=== PATIENT | male | born 1960 | race Caucasian/White ===

== ENCOUNTER 2019-04-24 17:13 | Inpatient (IN) | payer BC ==
[~2019-04-24 17:13] MED LIST: ISOVUE-370 76%-LOCM 1 ML ONE
[2019-04-24 17:41] LABS: Hemoglobin 13.9 g/dL (14.0-18.0); Mean Corpuscular HGB CONC 32.7 g/dL (32.0-36.0); Mean Corpuscular Volume 70.3 fL (78.0-98.0); Mean Platelet Volume 8.7 fL (7.4-10.4); Platelet Count 243 thou/uL (130-400); Red Blood Cell (RBC) Count 6.04 mill/uL (4.70-6.10); White Blood Cell (WBC) Count 8.6 thou/uL (4.8-10.8)
[2019-04-24 17:47] LABS: PTT 29.1 SEC (22.9-36.1)
[2019-04-24 17:58] LABS: #Eosinphils 0.1 thou/uL (0.0-0.7); #Lymphocytes 2.2 thou/uL (1.20-3.40); #Monocytes 0.7 thou/uL (0.11-0.59); #Neutrophils 5.6 thou/uL (1.40-6.50); %Basophils 0.4 % (0.0-1.0); %Eosinophils 0.6 % (0.0-10.0); %Lymphocytes 25.1 % (21.0-51.0); %Monocytes 8.3 % (0.0-10.0); %Neutrophils 65.6 % (42.0-75.0); Hypochromia SLIGHT = 6-15 cells (100X) (0-5/hpf); MDiff Complete? YES; Microcytosis SLIGHT = 6-15 cells (100X) (0-5/hpf); Platelet Morphology Comment Appears Adequate
--- NOTE | 2019-04-24 18:00 | CT ---
CT BRAIN WITHOUT CONTRAST: 04/24/19 HISTORY: 59-year-old male with increasing significant loss of range of motion to the left arm. Headache. FINDINGS: There is white matter edema in the right cerebral hemisphere with a tiny calcification suggesting mas s. No significant midline shift is seen. No evidence of hemorrhage or abnormal extra-axial fluid ayse ections are noted. The ventricular size appears appropriate. The bony calvarium is intact. The visual ized paranasal sinuses and mastoid air cells are well aerated. IMPRESSION: Findings are suspicious for right sided intra-axial mass/malignancy. This should be evaluated with a contrast enhanced MRI. Discussed over the telephone with ER physician Dr. Bandar Henry at 5:48 p.m. Code CR POS: [facility]
[2019-04-24 18:02] LABS: ALT (SGPT) 22 U/L (8-55); AST (SGOT) 15 U/L (5-34); Albumin 4.5 g/dL (3.5-5.0); Alkaline Phosphatase 89 U/L (40-110); Anion Gap 11 mmol/L (10-20); BUN (Urea Nitrogen) 10 mg/dL (8.4-25.7); Bilirubin, Total 0.4 mg/dL (0.2-1.2); Calc. Creatinine Clearance 0 mL/min (70-130); Calcium 9.4 mg/dL (7.8-10.44); Carbon Dioxide 28 mmol/L (22-29); Chloride 101 mmol/L (98-107); Estimated GFR-MDRD Greater than 90; Globulin 3.1 g/dL (2.4-3.5); Glucose 194 mg/dL (70-105); Potassium 4.1 mmol/L (3.5-5.1); Protein, Total 7.6 g/dL (6.0-8.3); Sodium 136 mmol/L (136-145)
[2019-04-24] MEDS ORDERED: Dexamethasone 10 MG/ML VIAL ONE (18:39)
[2019-04-24] MEDS ORDERED: Senokot S 8.6-50 MG TAB PO PRN (20:02)
[2019-04-24] MEDS ORDERED: Bisacodyl 10 MG SUPP PR PRN (20:02)
[2019-04-24] MEDS ORDERED: Dextrose 5% in Water 1,000 ML IV PRN (20:02)
[2019-04-24] MEDS ORDERED: Acetaminophen 325 MG TAB PO PRN (20:02)
[2019-04-24] MEDS ORDERED: Dextrose 50% Abboject 50 ML SYRINGE SLOW IVP PRN (20:02)
[2019-04-24] MEDS ORDERED: Ondansetron PF 4 MG/2 ML Vial IVP PRN (20:02)
[2019-04-24] MEDS ORDERED: Guaifenesin DM 100-10/5 ML UDCUP PO PRN (20:02)
[2019-04-24 20:19] VITALS: BMI 23.8
[2019-04-24] MEDS ORDERED: FLU VACC QS2019-20(6MOS UP)/PF 60 MCG/0.5 ML SYRINGE IM ONE (21:00)
--- NOTE | 2019-04-24 21:19 | HP ---
REASON FOR ADMISSION: Right brain mass with left upper extremity weakness. HISTORY OF PRESENTING ILLNESS: The patient gives history of having 2 weeks of trouble with movement of his hand and wrist. He could not make a fist and he could not type on the keyboard. He has also had trouble when he was trying to mow his lawn. He went to see his primary care physician, Dr. Jeniffer Campbell. He was referred to see Dr. Funes, who saw Dr. Funes on Saturday and was advised steroids for 2 weeks and an MRI to be obtained. The MRI date is on May 06. He has history of left lower extremity polio when he was 3 years old. He normally can take support of his entire feet when he ambulates, but for now he is using his heel and also he cannot really support his leg with his left upper extremity with more shaking. In general, the patient has been weaker on the left upper than lower extremity from last 2 weeks, which has been progressively getting worse. He has also had tingling sensation in his left upper extremity. As his symptoms were progressively getting worse and his MRIs on May 06, the patient got worried, hence came to emergency room. PAST MEDICAL AND SURGICAL HISTORY: 1. History of polio when he was 3 years old, affecting left lower extremity. 2. Hypertension. 3. Diabetes mellitus, type 2. 4. History of colonoscopy done with polyps removed. 5. Occasional gout flare-up. 6. No other surgical history. CURRENT MEDICATIONS: 1. Metformin 1000 mg twice daily. 2. Glimepiride 4 mg twice daily. 3. Lisinopril 5 mg p.o. daily. 4. Aspirin 81 mg daily. PERSONAL HISTORY: Does not abuse alcohol or drugs. No history of smoking. 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 FAMILY HISTORY: Father is healthy. Mother at the age of 78 years, she had history of diabetes and hypertension. He has one brother and three sisters, none of whom have cancers, has a sister who has diabetes. CODE STATUS: Full. POWER OF [employer] EXCHANGE ARCHITECT: His . REVIEW OF SYSTEMS: PHYSICAL EXAMINATION: GENERAL: The patient is a 59-year-old male, who is currently not in any acute distress. VITAL SIGNS: Blood pressure 146/84, pulse 80 per minute, respiratory rate 18 per minute, temperature 97.3 degrees Fahrenheit, saturating 99% on room air. NECK: Supple. No elevated JVD. HEENT: Eyes, extraocular muscles are intact. Pupils are reacting to light. Oral cavity, mucous membranes are moist. No exudates or congestion. CARDIOVASCULAR: S1, S2 heard. Regular rhythm. RESPIRATORY: Air entry 2+ bilateral. No rales or rhonchi. ABDOMEN: Soft. Bowel sounds heard. No tenderness, rigidity, or guarding. EXTREMITIES: No peripheral edema or calf tenderness. Left lower extremity, the patient has chronic polio changes with wasting of musculature. VASCULAR: Peripheral pulses are 1+ bilateral. No ischemic ulcerations or gangrene. CENTRAL NERVOUS SYSTEM: The patient has a strength of 3/5 in left upper extremity. Left lower extremity, the patient is chronically weak due to history of polio from 3 years of age, but he feels that it is lot more weaker than before, but not as bad as his upper extremity. Right upper and lower extremity strength is 5/5. The patient is right-handed. He has trouble supinating his left upper extremity. He has also had trouble making a fist touching his fingers to the thumb on the left hand. PSYCHIATRIC: The patient's mood is euthymic. No hallucinations or delusions. LABORATORY DATA: CT brain done shows intra-axial right brain mass with edema. Electrolytes are stable. BUN 10, creatinine 0.8, serum glucose 194. Liver enzymes are within normal limits. Cardiac enzymes are negative. Albumin is 4.5. PT, INR, and PTT within normal limits. White count of 8, H and H 13 and 42, platelet count is 243, MCV 70 with 65% neutrophils. CLINICAL IMPRESSION AND PLAN: The patient will be admitted to ICU for right brain mass with edema and left-sided weakness. He will be on Decadron 4 mg IV q.6 hourly. has spoken to Dr. Harvey. He will have an MRI brain with and without contrast and we will also obtain a CT chest, abdomen, and pelvis to see if there is a primary with possible mass in the brain. Echo for LV function. He will be on Lantus 10 units subcu twice daily Protonix 40 mg IV daily. All his oral medications including metformin, glimepiride, lisinopril, aspirin will be held for now. I have given complete updates to patient, his and daughter who are here at bedside. He will be closely monitored for possible seizures, fall, and aspiration precautions. Further workup will decide further course of action. Job ID: [id number]
[2019-04-24] MEDS: Insulin Glargine 10 UNITS in Pre-Filled Syringe SC SCH (22:02)
[2019-04-24] MEDS: Dexamethasone 4 mg/ml Vial SLOW IVP SCH (23:39)
[2019-04-24] MEDS ORDERED: Dexamethasone 4 mg/ml Vial SLOW IVP SCH (23:59)
--- NOTE | 2019-04-25 01:34 | CON ---
DATE OF CONSULTATION: 04/24/2019 HISTORY OF PRESENT ILLNESS: The patient is a 59-year-old male with a past medical history of hypertension, diabetes, history of polio as a child with chronic left lower extremity weakness, who presented to the emergency department for progressive left-sided weakness and facial changes x2 weeks. He reports that this began gradually 2 weeks ago without inciting event. He describes it as a numbness in the left hand. 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 He is not having difficulty ambulating and supporting his weight. He recently followed up with Neurology, but MRI was scheduled for 05/06, and his symptoms were progressing rather quickly; therefore, he came to the emergency department tonight for evaluation. Noncontrast CT head was notable for what appears to be an underlying right-sided cerebral mass with surrounding vasogenic edema. There is no significant midline shift. PAST MEDICAL HISTORY: History of polio when he was 3 years old, affecting left lower extremity; hypertension, diabetes. PAST SURGICAL HISTORY: Colonoscopy. 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 Does not smoke, drink, or use any drugs. FAMILY HISTORY: Noncontributory. ALLERGIES: NO KNOWN DRUG ALLERGIES. REVIEW OF SYSTEMS: Per HPI. PHYSICAL EXAMINATION: VITAL SIGNS: Heart rate is 105, BP 165/103, respiration rate is 21. He is 99% on room air. Afebrile. CONSTITUTIONAL: Awake, alert, no acute distress. HEENT: Head is normocephalic and atraumatic. He is noted to have slight left-sided facial droop. Eyes, PERRLA. Extraocular movements intact. ENT, oral mucosa is pink, intact, moist. NECK: Nontender to palpation. No meningismus or nuchal rigidity. CARDIAC: Regular rate and rhythm. PULMONARY: Symmetric chest expansion. No evidence of dyspnea. MUSCULOSKELETAL: He has chronic changes consistent with post-polio in the left lower extremity with contracture and wasting of the musculature. In the left upper extremity, he has significant weakness with flexion and extension of the left wrist as well as in the left band cutter. He has slightly increased strength with flexion and extension of the elbow and internal and external rotation of the left upper extremity. He has 5/5 strength throughout the right upper and right lower extremity. In the left lower extremity, this is more difficult to assess because he is chronically weak, but it does also appear weak throughout 09/02. NEUROLOGICAL: A and O x4. Normal speech, left-sided facial droop, left-sided weakness per musculoskeletal exam. ASSESSMENT AND PLAN: This is a 59-year-old male with new and worsening left-sided weakness x2 weeks, was found to have what appears to be an underlying right-sided cerebral mass. The patient will need evaluation with MRI of the brain with and without contrast. We are also recommending a Decadron 4 q.6 to be given for his vasogenic edema as well as PPI for GI protection. Once MRI is complete, we will review and further coordinate plan. The patient otherwise appears to be very stable and at this point, we feel that he could be transferred to the Stroke Unit at any point in time. Job ID: [id number]
[2019-04-25 04:35] LABS: #Lymphocytes 1.1 thou/uL (1.20-3.40); #Monocytes 0.2 thou/uL (0.11-0.59); %Eosinophils 0.1 % (0.0-10.0); %Lymphocytes 8.8 % (21.0-51.0); %Monocytes 1.2 % (0.0-10.0); %Neutrophils 89.9 % (42.0-75.0); Hemoglobin 13.6 g/dL (14.0-18.0); Mean Corpuscular HGB CONC 32.6 g/dL (32.0-36.0); Mean Corpuscular Volume 70.5 fL (78.0-98.0); Mean Platelet Volume 8.8 fL (7.4-10.4); Platelet Count 259 thou/uL (130-400); RBC Distribution Width 16.8 % (11.5-14.5); Red Blood Cell (RBC) Count 5.91 mill/uL (4.70-6.10); White Blood Cell (WBC) Count 12.3 thou/uL (4.8-10.8)
[2019-04-25 04:52] LABS: Anion Gap 15 mmol/L (10-20); BUN (Urea Nitrogen) 10 mg/dL (8.4-25.7); Calc. Creatinine Clearance 90 mL/min (70-130); Calcium 9.4 mg/dL (7.8-10.44); Carbon Dioxide 23 mmol/L (22-29); Chloride 101 mmol/L (98-107); Estimated GFR-MDRD Greater than 90; Glucose 229 mg/dL (70-105); Potassium 4.3 mmol/L (3.5-5.1); Sodium 135 mmol/L (136-145)
[2019-04-25] MEDS: Dexamethasone 4 mg/ml Vial SLOW IVP SCH ×3 (05:39→17:56)
[2019-04-25] MEDS: HumaLOG 300 UNITS/3 ML VIAL SC PRN ×4 (05:40→22:23)
--- NOTE | 2019-04-25 08:14 | CT ---
PRELIMINARY REPORT/[facility]/EMERGENCY AFTER HOURS PROCEDURE: PROCEDURE INFORMATION: Exam: CT Chest With Contrast Exam date and time: 04/25/2019 12:01 AM Clinical history: 59 years old, male; Other: Eval for primary cancer; Initial oncological staging ass essment; No known metastasis; Patient HX: Brain mass found on CT, eval for primary source TECHNIQUE: Imaging protocol: Computed tomography of the chest with intravenous contrast. COMPARISON: No relevant prior studies available. FINDINGS: Lungs: There is bibasilar atelectatic change or scarring. Pleural space: Unremarkable. No pneumothorax. No pleural effusion. Heart: Unremarkable. No cardiomegaly. No pericardial effusion. Aorta: Unremarkable. No aortic aneurysm. Lymph nodes: Unremarkable. No enlarged lymph nodes. Bones/joints: Unremarkable. No acute fracture. Soft tissues: Unremarkable. Other findings: Findings in the upper abdomen are described in the CT abdomen and pelvis dictation of the same day. IMPRESSION: No acute CT pathology or mass of the chest. PROCEDURE INFORMATION: Exam: CT Abdomen And Pelvis With Contrast Exam date and time: 04/25/2019 12:01 AM Clinical history: 59 years old, male; Other: Eval for primary cancer; Initial oncological staging ass essment; No known metastasis; Patient HX: Brain mass found on CT, eval for primary source TECHNIQUE: Imaging protocol: Computed tomography of the abdomen and pelvis with intravenous contrast. COMPARISON: No relevant prior studies available. FINDINGS: Liver: Normal. No mass. Gallbladder and bile ducts: Normal. No calcified stones. No ductal dilation. Pancreas: Normal. No ductal dilation. Spleen: Normal. No splenomegaly. Adrenals: Normal. No mass. Kidneys and ureters: There is a simple cyst of the left kidney measuring 3.2 cm. Stomach and bowel: Unremarkable. No obstruction. No mucosal thickening. Appendix: No evidence of appendicitis. Intraperitoneal space: Unremarkable. No free air. No significant fluid collection. Vasculature: Unremarkable. No abdominal aortic aneurysm. Lymph nodes: Unremarkable. No enlarged lymph nodes. Bladder: Unremarkable as visualized. Reproductive: Unremarkable as visualized. Bones/joints: Unremarkable. No acute fracture. Soft tissues: Unremarkable. Other findings: Findings in the lower thorax are described on the CT chest dictation of the same day. IMPRESSION: No acute CT pathology or mass of the abdomen or pelvis. Thank you for allowing us to participate in the care of your patient. Dictated and Authenticated by: Cr Bedolla MD 04/25/2019 12:39 AM Central Time ([place] & [place]) FINAL REPORT CT CHEST WITH IV CONTRAST CT ABDOMEN WITH IV CONTRAST CT PELVIS WITH IV CONTRAST: I agree with the preliminary report given by Stacy. POS: [facility]
[2019-04-25] MEDS ORDERED: Lorazepam 1 MG TAB PO SCH (08:45)
[2019-04-25] MEDS ORDERED: Pantoprazole 40 MG VIAL IVP SCH (09:00)
[2019-04-25] MEDS: Insulin Glargine 10 UNITS in Pre-Filled Syringe SC SCH (12:37)
--- NOTE | 2019-04-25 13:19 | PDOC.HOSPP ---
- Subjective Encounter Date: 04/25/19 Encounter Time: 11:15 Subjective: mild improvement in finger movement in his left hand no new symptoms at bedside - Objective Vital Signs & Weight: Vital Signs (12 hours) Temp 04/25/19 11:00 98.1 F 04/25/19 08:00 98.4 F 04/25/19 04:00 98.7 F Weight Weight 138 lb 14.259 oz Most Recent Monitor Data Heart Rate from ECG 131 NIBP 143/79 NIBP BP-Mean 115 Respiration from ECG 20 SpO2 97 I&O: 04/24/19 04/25/19 04/26/19 06:59 06:59 06:59 Intake Total 900 600 Output Total 800 250 Balance 100 350 Result Diagrams: 04/25/19 04:22 04/25/19 04:22 Additional Labs: Accuchecks 04/25/19 04/25/19 04/24/19 12:08 04:25 20:32 POC Glucose 237 H 203 H 139 H 04/24/19 17:25 POC Glucose 197 H Hospitalist ROS - Medication Medications: Active Medications Generic Name Dose Route Start Last Admin Trade Name Freq PRN Reason Stop Dose Admin Dexamethasone 4 mg 04/24/19 23:59 04/25/19 12:38 Decadron SLOW IVP 4 mg Q6HR MARIA FERNANDA Administration Insulin Glargine 10 units/ 0.1 mls @ 0 mls/hr 04/24/19 21:00 04/25/19 12:37 Miscellaneous Medication SC 0.1 mls BID MARIA FERNANDA Administration Insulin Human Lispro 0 units 04/24/19 20:02 04/25/19 12:43 Humalog SC 4 unit .MODERATE SLIDING SC PRN Administration Moderate Correctional Scale - Exam General Appearance: NAD, awake alert Eye: PERRL, anicteric sclera ENT: no oropharyngeal lesions, moist mucosa Neck: supple, no JVD Heart: no murmur, no gallops Respiratory: no wheezes, no rales Gastrointestinal: soft, non-tender, non-distended, normal bowel sounds Extremities: no clubbing, no edema Neurological - other findings: left hemiparesis, left LE has polio changes with atrophy of musculature/johnson Psychiatric: normal affect, A&O x 3 Hosp A/P (1) Brain mass Code(s): G93.89 - OTHER SPECIFIED DISORDERS OF BRAIN Status: Acute (2) DM type 2 (diabetes mellitus, type 2) Status: Chronic Qualifiers: Diabetes mellitus residential insulin use: without residential use (3) HTN (hypertension) Code(s): I10 - ESSENTIAL (PRIMARY) HYPERTENSION Status: Chronic Qualifiers: Hypertension type: essential hypertension Qualified Code(s): I10 - Essential (primary) hypertension - Plan CT chest, abd and pelvis has not revealed any primary mass MRI brain will be done in am per staff may tx to med or stroke unit continue raul villar for now PT/OT eval await NSX opinion after MRI d/w patient and at bedside
[2019-04-25] MEDS: Metoprolol Tartrate 25 MG TAB PO SCH (20:48)
[2019-04-25] MEDS: Insulin Glargine 15 UNITS in Pre-Filled Syringe 1 EACH SC SCH (21:42)
[2019-04-26] MEDS: Dexamethasone 4 mg/ml Vial SLOW IVP SCH ×5 (00:11→23:36)
[2019-04-26] MEDS ORDERED: Lorazepam 1 MG TAB PO SCH (06:00)
[2019-04-26] MEDS: HumaLOG 300 UNITS/3 ML VIAL SC PRN ×2 (06:35→21:56)
[2019-04-26 08:51] LABS: Anion Gap 14 mmol/L (10-20); BUN (Urea Nitrogen) 17 mg/dL (8.4-25.7); Calc. Creatinine Clearance 88 mL/min (70-130); Calcium 9.5 mg/dL (7.8-10.44); Carbon Dioxide 23 mmol/L (22-29); Chloride 103 mmol/L (98-107); Estimated GFR-MDRD Greater than 90; Glucose 196 mg/dL (70-105); Potassium 3.7 mmol/L (3.5-5.1); Sodium 136 mmol/L (136-145)
[2019-04-26] MEDS: Insulin Glargine 15 UNITS in Pre-Filled Syringe 1 EACH SC SCH ×2 (08:53→20:44)
[2019-04-26] MEDS: Glimepiride 4 MG TAB PO SCH ×2 (08:54→20:43)
[2019-04-26] MEDS: Metoprolol Tartrate 25 MG TAB PO SCH ×2 (08:54→20:44)
--- NOTE | 2019-04-26 11:27 | MRI ---
BRAIN MRI WITH AND WITHOUT CONTRAST: Date: 04/26/19 COMPARISON: None. HISTORY: Left hand weakness and numbness, brain lesion seen on recent CT exam. TECHNIQUE: Multiplanar, multisequence MR imaging of the brain is obtained with and without contrast. FINDINGS: The diffusion-weighted imaging demonstrates no evidence for acute infarction. There is an intra-axial lesion involving the periventricular deep and subcortical white matter in the posterior right frontal/right parietal region. This lesion is heterogeneously hypointense on T1, het erogeneously centrally hyperintense on T2, and demonstrates complex peripheral and internal linear an d nodular enhancement. There is prominent surrounding vasogenic edema. This extends to the level of t he periventricular white matter near the atrium of the right lateral ventricle. The gradient echo henry ging demonstrates numerous internal foci of blooming artifact suggesting small areas of calcification and/or hemorrhage. This lesion measures 6.3 cm in AP dimension, 5.9 cm in transverse, and 4.8 cm in craniocaudal dimension. There is associated mass effect on the posterior body and atrium of the right lateral ventricle. No exnpl-cm-nscx midline shift. The postcontrast imaging demonstrates no additional focal area of enhancement within the brain parenc hyma. The imaged paranasal sinuses/mastoid air cells demonstrate normal signal intensity. Arterial flow-voi ds at the axial level of the skull base appear grossly unremarkable on the T2-weighted imaging. IMPRESSION: Lobulated intra-axial mass lesion on the right with imaging characteristics suspicious for glioblasto ma. POS: [facility]
--- NOTE | 2019-04-26 15:49 | PDOC.HOSPP ---
- Subjective Encounter Date: 04/26/19 Encounter Time: 14:00 Subjective: has unsteady gait, no sob he d/w MRI findings and its inoperable mass - Objective Vital Signs & Weight: Vital Signs (12 hours) Temp Pulse Resp BP BP Pulse Ox 04/26/19 12:00 97.7 F 61 16 134/65 97 04/26/19 08:00 97 04/26/19 07:47 98.7 F 82 16 125/79 97 04/26/19 04:00 98.1 F 79 16 131/71 98 Weight Weight 138 lb 14.259 oz Most Recent Monitor Data Heart Rate from ECG 131 NIBP 143/79 NIBP BP-Mean 115 Respiration from ECG 20 SpO2 98 I&O: 04/25/19 04/26/19 04/27/19 06:59 06:59 06:59 Intake Total 900 600 Output Total 800 250 Balance 100 350 Result Diagrams: 04/25/19 04:22 04/26/19 07:36 Additional Labs: Accuchecks 04/26/19 04/26/19 04/25/19 11:57 05:47 22:21 POC Glucose 188 H 187 H 291 H 04/25/19 04/25/19 20:28 17:40 POC Glucose 213 H 223 H Hospitalist ROS - Medication Medications: Active Medications Generic Name Dose Route Start Last Admin Trade Name Freq PRN Reason Stop Dose Admin Dexamethasone 4 mg 04/24/19 23:59 04/26/19 13:35 Decadron SLOW IVP 4 mg Q6HR MARIA FERNANDA Administration Glimepiride 4 mg 04/26/19 09:00 04/26/19 08:54 Amaryl PO 4 mg BID MARIA FERNANDA Administration Insulin Glargine 15 units/ 0.15 mls @ 0 mls/hr 04/25/19 21:00 04/26/19 08:53 Miscellaneous Medication SC 0.15 mls BID MARIA FERNANDA Administration Insulin Human Lispro 0 units 04/24/19 20:02 04/26/19 06:35 Humalog SC 2 unit .MODERATE SLIDING SC PRN Administration Moderate Correctional Scale Insulin Human Lispro 0 units 04/24/19 20:02 04/25/19 22:23 Humalog SC 3 unit .BEDTIME SLIDING SC PRN Administration Bedtime Correctional Scale Lorazepam 1 mg 04/26/19 06:00 04/26/19 09:22 Ativan PO 04/26/19 23:59 1 mg ONE MARIA FERNANDA Administration Metoprolol Tartrate 25 mg 04/25/19 21:00 04/26/19 08:54 Lopressor PO 25 mg BID MARIA FERNANDA Administration Pantoprazole Sodium 40 mg 04/26/19 09:00 04/26/19 08:54 Protonix PO 40 mg DAILY MARIA FERNANDA Administration Sodium Chloride 10 ml 04/26/19 05:38 04/26/19 05:42 Flush - Normal Saline IVF 10 ml PRN PRN Administration Saline Flush - Exam General Appearance: awake alert Eye: PERRL, anicteric sclera ENT: no oropharyngeal lesions, moist mucosa Neck: supple, no JVD Heart: RRR, no murmur Respiratory: no wheezes, no rales Gastrointestinal: soft, non-tender, non-distended, normal bowel sounds Extremities: no cyanosis, no edema Neurological - other findings: left hemiparesis Psychiatric: normal affect, A&O x 3 Hosp A/P (1) Brain mass Code(s): G93.89 - OTHER SPECIFIED DISORDERS OF BRAIN Status: Acute (2) DM type 2 (diabetes mellitus, type 2) Status: Chronic Qualifiers: Diabetes mellitus superintendent container terminal insulin use: without fpc use (3) HTN (hypertension) Code(s): I10 - ESSENTIAL (PRIMARY) HYPERTENSION Status: Chronic Qualifiers: Hypertension type: essential hypertension Qualified Code(s): I10 - Essential (primary) hypertension - Plan CT chest, abd and pelvis has not revealed any primary mass MRI brain reveals mass suspicious for GBM d/w , its inoperable, pt will have second opinion. continue frank villarron for now PT/OT eval d/w patient and at bedside PT/OT eval dc plan will be to [facility] [place] transfer or home, has unsteady gait with risk of fall, prefer transfer if it can be operated. He was walking in am holding onto side wall/railings
--- NOTE | 2019-04-26 19:03 | PRG ---
DATE OF SERVICE: 04/26/2019 SUBJECTIVE: I am seeing the patient at the request of the [facility] for an intracranial tumor. Please refer to Ver[address]'s evaluation on 04/24/2019. The patient is a 59-year-old man, otherwise excellent health besides diabetes, who has had 2 weeks of progressive left arm weakness. This has improved somewhat with steroids. He has a static neurologic deficit related to polio as the use and his walking is at its baseline according to the patient and his . CT and MRI revealed a heterogeneous deep right parieto-occipital tumor consistent with high-grade glioma. There were no findings on CT chest, abdomen, and pelvis. 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 I recommended stereotactic biopsy to confirm the diagnosis and to consider any adjuvant or palliative treatment. I discussed this candidly with the patient and his . I recommend discharge on oral steroids at two t.i.d. We can either schedule the stereotactic biopsy on elective basis or he can seek other opinions prior to proceeding. They will remain on that he is to proceed. Job ID: [id number]
[2019-04-27] MEDS: Dexamethasone 4 mg/ml Vial SLOW IVP SCH ×2 (06:15→12:20)
[2019-04-27] MEDS ORDERED: metFORMIN 500 MG TAB PO SCH (08:00)
[2019-04-27] MEDS: Metoprolol Tartrate 25 MG TAB PO SCH (08:48)
[2019-04-27] MEDS: Glimepiride 4 MG TAB PO SCH (08:49)
[2019-04-27] MEDS: Insulin Glargine 15 UNITS in Pre-Filled Syringe 1 EACH SC SCH (08:58)
[2019-04-27] MEDS ORDERED: Non-Formulary Item 1 EACH (Metformin Hcl [Metformin Hcl] 1 TAB) PO SCH (09:00)
[2019-04-27] MEDS ORDERED: Lisinopril 5 MG TAB PO SCH (09:00)
[2019-04-27 12:24] VITALS: BP 128/76; TEMP 98.2
[2019-04-27] MEDS: HumaLOG 300 UNITS/3 ML VIAL SC PRN (12:31)
--- NOTE | 2019-04-27 19:20 | DIS ---
DATE OF ADMISSION: 04/24/2019 DATE OF DISCHARGE: 04/27/2019 DISCHARGE DISPOSITION: Home. 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 SECONDARY DISCHARGE DIAGNOSES: Diabetes mellitus type 2, hypertension, and left-sided weakness due to brain mass. PROCEDURES DONE DURING HOSPITALIZATION: MRI brain with and without contrast done on 04/26/2019 showed lobulated intra-axial mass lesion on the right with imaging characteristics suspicious for glioblastoma. CT brain without contrast on admission showed findings suspicious for right-sided intra-axial mass/malignancy. CT of the chest, abdomen, and pelvis with contrast done showed no acute pathology in the chest, abdomen, or pelvis, there is no mass identified. Echo with 2D Doppler showed EF of 60% to 65%. INPATIENT CONSULT: Dr. Harvey for Neurosurgery. DISCHARGE MEDICATIONS: 1. Glimepiride 4 mg p.o. twice daily. 2. Lisinopril 5 mg p.o. daily. 3. Metformin 1000 mg p.o. twice daily. 4. Dexamethasone 4 mg p.o. twice daily. 5. Protonix 40 mg p.o. daily. ALLERGIES: NO KNOWN DRUG ALLERGIES. DISCHARGE PLAN: The patient to follow up with primary care physician, Dr. Jeniffer Campbell in 1 week. He has a new appointment to see and neurosurgeon in [place], tomorrow. BRIEF COURSE DURING HOSPITALIZATION: The patient initially came to ER with complaints of left-sided weakness, which was progressively getting worse, this started out from last 2 weeks. He has had trouble with fine movements of his fingers and unable to flex his fingers or hold a cup in his left hand. He has also had weakness in his left lower extremity. He has had history of poliomyelitis when he was 3 years old with post-polio changes in the left lower extremity. In view of this history, he has had initial CT scan done which was suspicious for intra-axial mass on the right on the right cerebral hemisphere. The patient was admitted to ICU due to edema in the brain. He was placed on steroids and has had neurosurgical consultation with Dr. Harvey. The patient did not have any seizures during his stay here. He has had a CT of the chest, abdomen, and pelvis with contrast done, which does not reveal any primary mass anywhere. He has had MRI done which was suspicious for high-grade glioma. He has had consultation with Dr. Harvey. Dr. Harvey evaluated the patient post MRI. His opinion is that this is a high-grade glioma and the lesion was inoperable. He recommended a stereotactic biopsy to confirm the diagnosis and to consider any adjuvant or palliative treatment. The patient wanted to have a second opinion at [facility] and he has an appointment to see a neurosurgeon tomorrow around 09:30. He has also had orthotic devices placed for his left lower extremity to help with ambulation with prior history of polio and current hemiparesis from the mass. He otherwise remained hemodynamically stable. He is given prescriptions for Decadron twice daily to take at home. His fingerstick glucose has been a bit uncontrolled, which is expected due to him being on steroids. Please note, I have seen and examined the patient on the day of discharge. Job ID: [id number]
== END 2019-04-27 15:47 | disposition home or self-care (01) | DRG 54 ==
LOC: ERS 17:13 → CCU 18:48 → ONC 04-25 15:39
PROVIDERS: ADMIT Internal Medicine; ATTEND Internal Medicine
DX: C71.9 Malignant neoplasm of brain, unspecified (principal); G93.6 Cerebral edema; G81.94 Hemiplegia, unspecified affecting left nondominant side; I10 Essential (primary) hypertension; E11.9 Type 2 diabetes mellitus without complications; Z79.899 Other long term (current) drug therapy; Z79.84 Long term (current) use of oral hypoglycemic drugs; Z79.82 Long term (current) use of aspirin; Z86.12 Personal history of poliomyelitis
CPT/HCPCS: 36415; 36416; 70450; 70553; 71260; 74177; 80048; 80053; 84484; 85025; 85610; 85730; 93005; 93306; 96374; J1100; J1815; Q9966

== ENCOUNTER 2020-03-17 21:55 | Observation (INO) | payer BC, OTHER ==
[~2020-03-17 21:55] MED LIST changes: -ISOVUE-370 76%-LOCM 1 ML ONE; +Iopamidol-370 76% 500 ML 1 ML ONE
[2020-03-17 22:46] LABS: #Eosinphils 0.2 thou/uL (0.0-0.7); #Lymphocytes 1.7 thou/uL (1.20-3.40); #Monocytes 0.6 thou/uL (0.11-0.59); #Neutrophils 5.2 thou/uL (1.40-6.50); %Basophils 0.2 % (0.0-1.0); %Eosinophils 3.2 % (0.0-10.0); %Lymphocytes 22.2 % (21.0-51.0); %Monocytes 8.2 % (0.0-10.0); %Neutrophils 66.2 % (42.0-75.0); Hemoglobin 14.2 g/dL (14.0-18.0); Mean Corpuscular HGB CONC 32.1 g/dL (32.0-36.0); Mean Corpuscular Hemoglobin 23.6 pg (27.0-31.0); Mean Corpuscular Volume 73.4 fL (78.0-98.0); Mean Platelet Volume 5.9 fL (7.4-10.4); Platelet Count 215 thou/uL (130-400); Red Blood Cell (RBC) Count 6.03 mill/uL (4.70-6.10); White Blood Cell (WBC) Count 7.8 thou/uL (4.8-10.8)
[2020-03-17] MEDS ORDERED: Ondansetron PF 4 MG/2 ML Vial ONE (22:53)
[2020-03-17] MEDS ORDERED: Morphine 4 MG/ML VIAL ONE (22:53)
[2020-03-17 22:54] LABS: ALT (SGPT) 7 U/L (8-55); AST (SGOT) 11 U/L (5-34); Albumin 4.1 g/dL (3.5-5.0); Alkaline Phosphatase 78 U/L (40-110); Anion Gap 16 mmol/L (10-20); BUN (Urea Nitrogen) 9 mg/dL (8.4-25.7); Bilirubin, Total 0.6 mg/dL (0.2-1.2); Calc. Creatinine Clearance 0 mL/min (70-130); Calcium 9.4 mg/dL (7.8-10.44); Carbon Dioxide 23 mmol/L (22-29); Chloride 104 mmol/L (98-107); Estimated GFR-MDRD Greater than 90; Globulin 2.9 g/dL (2.4-3.5); Glucose 153 mg/dL (70-105); Potassium 4.3 mmol/L (3.5-5.1); Sodium 139 mmol/L (136-145)
--- NOTE | 2020-03-17 23:05 | CT ---
Head CT without contrast 03/17/2020: COMPARISON: 04/24/2019 HISTORY: Seizure TECHNIQUE: Axial CT imaging at 5 mm intervals from vertex through skull base without contrast FINDINGS: The imaged paranasal sinuses and mastoid air cells are grossly unremarkable. There is evide nce of prior right-sided craniotomy. No acute osseous abnormality is seen. No intracranial hemorrhage is evident. There is a complex area of abnormal density within the superior posterior right frontoparietal region which measures approximately 4-5 cm in AP dimension. This demonstrates irregular peripheral margins, foci of peripheral calcification, and central hypodensity. This is in the region of a previo usly resected tumor. There is a suggestion of subtle abnormal density in the region of the corpus callosum superiorly extending into the left frontal region, best seen on axial image 21. No intracranial hemorrhage. IMPRESSION: Focal area of irregular hypodensity within the superior right frontoparietal region with peripheral areas of calcification. This is in the region of previously resected tumor. There may be associated abnormality involving the adjacent corpus callosum extending into the left frontal region. This is suspicious for underlying recurrent tumor. Brain MRI with and without contrast is advised.
--- NOTE | 2020-03-17 23:17 | CT ---
CT angiogram chest: 03/17/2020 COMPARISON: None HISTORY: Syncopal episode TECHNIQUE: Axial CT imaging at 2.5 mm intervals from the thoracic inlet through the upper abdomen wit h IV contrast using CT angiogram protocol. Coronal and oblique sagittal 3-D reformatted imaging obtained. FINDINGS: There is debris within the stomach. Imaged upper abdomen demonstrates no acute findings. No pleural, pericardial, or mediastinal fluid. No axillary, hilar, or mediastinal lymphadenopathy. No pulmonary arterial filling defect is seen to suggest the presence of acute pulmonary embolism. Motion artifact slightly limits detailed assessment of the lung parenchyma, particularly within the l stephen bases. No pneumothorax. No discrete pulmonary parenchymal mass lesion or nodule. No acute osseous abnormality. IMPRESSION: No acute findings.
[2020-03-17] MEDS ORDERED: Lorazepam 2 MG/ML VIAL SLOW IVP PRN (23:46)
[2020-03-17] MEDS ORDERED: Dexamethasone 4 mg/ml Vial SLOW IVP SCH (23:59)
[2020-03-17] MEDS ORDERED: LEVETIRACETAM IVPB SCH (23:59)
[2020-03-17] MEDS ORDERED: NACL IVPB SCH (23:59)
[2020-03-18 02:08] VITALS: BMI 22.6
[2020-03-18] MEDS ORDERED: Labetalol HCl 100 MG/20 ML VIAL SLOW IVP PRN (02:25)
[2020-03-18] MEDS ORDERED: Ondansetron PF 4 MG/2 ML Vial IVP PRN (02:25)
[2020-03-18] MEDS ORDERED: Guaifenesin DM 100-10/5 ML UDCUP PO PRN (02:25)
[2020-03-18] MEDS ORDERED: hydrALAZINE 20 MG/ML VIAL SLOW IVP PRN (02:25)
[2020-03-18] MEDS ORDERED: Promethazine HCl 12.5 MG in Sodium Chloride 0.9% 50 ML IVPB PRN (02:25)
[2020-03-18] MEDS ORDERED: cloNIDine 0.1 MG TAB PO PRN (02:25)
[2020-03-18] MEDS ORDERED: Dextrose 50% Abboject 50 ML SYRINGE SLOW IVP PRN ×2 (02:27→17:47)
[2020-03-18] MEDS ORDERED: HumaLOG 300 UNITS/3 ML VIAL SC PRN (02:27)
[2020-03-18] MEDS ORDERED: Dextrose 5% in Water 1,000 ML IV PRN ×2 (02:27→17:47)
--- NOTE | 2020-03-18 02:27 | PDOC.HHP ---
Hospitalist HPI - History of Present Illness Seizure History of Present Illness: Patient is a 60 year old male with PMH brain tumor, HTN, DM who presents to the hospital today for seizure, patient has history of brain tumor (reportedly a glioblastoma, not conformed) which has advanced despite treatment, today after eating dinner patient was going to restroom and had a seizure-like episode where head rolled back and not focusing gaze, lasted 5 minutes, no post ictal confusion or BBI but patient developed L sided weakness after the episode and has not been able to walk. This is first ever seizure, patient is on keppra for seizure ppx. Patient brought to hospital, here ED physician talked with Dr Elkin hercules, patient's oncologist, who believes the tumor is terminal and recommends CTA chest and palliative care consult as well as seizure workup. Patient is currently sleeping, recieved pain medications but will awaken for a second but doesnt want to be disturbed. He reported a headache earlier but does not complain of this now. reports he was awake and talking before pain medication. In ED, CTA chest did not show anything acute. Prolactin elevated consistent with seizure. CT brain performed and revealed tumor related findings, no acute hemorrhage noted. Patient admitted for the above issues. With regards to tumor, patient was first diagnosed March 2019, sees Dr Vang and a physician at [facility]. Patient had a surgery May 2019, followed by radiation until July, and has been on avastin, however they just had MRI today at [facility] and got the news today that tumor has recurred and actually significantly increased in size. Patient has DM on PO medication, no insulin and also has HTN. No other significant medical history reported. Hospitalist ROS - Review of Systems ROS unobtainable: due to mental status (post/ictal, lethargic) - Medication Medications: glimepiride SatMar 17, 2020 22:58 ANUJA Pereira Miranda TABLET : Strength - 4 mg : ORAL Patient Dose: 4 mg Oral 2 times a day. lisinopril SatMar 17, 2020 22:58 ANUJA Pereira Miranda TABLET : Strength - 5 mg : ORAL Patient Dose: 5 mg Oral once a day. metFORMIN SatMar 17, 2020 22:58 ANUJA Pereira Miranda TABLET : Strength - 500 mg : ORAL Patient Dose: 1000 mg Oral 2 times a day. pantoprazole oral SatMar 17, 2020 22:59 ANUJA Pereira, Angelic TABLET, DELAYED RELEASE (ENTERIC COATED) : Strength - 40 mg : ORAL Patient Dose: 1 tab(s) Oral once a day. Keppra oral [facility] Mar 17, 2020 22:59 ANUJA Pereira, Angelic tablet : Strength - 500 mg : ORAL Patient Dose: 2 times a day. Hospitalist History - Past Medical History Other Medical History: glioblastoma, HTN, DM - Past Surgical History Other Surgical History: brain tumor surgery - Family History Family History: reports: no pertinent history - Social History Alcohol: reports: None Drugs: reports: none - Exam General - other findings: altered mental status, sleeping, will awaken and talk some Eye - other findings: pupils dilated but responsive ENT: normocephalic atraumatic, no oropharyngeal lesions, moist mucosa Neck: supple, symmetric, no JVD, no thyromegaly, no lymphadenopathy, no carotid bruit Heart: RRR, no murmur, no gallops, no rubs, normal peripheral pulses Respiratory: CTAB, no wheezes, no rales, no ronchi, normal chest expansion, no tachypnea, normal percussion Gastrointestinal: soft, non-tender, non-distended, normal bowel sounds, no palpable masses, no hepatomegaly, no splenomegaly, no bruit Extremities: no cyanosis, no clubbing, no edema Skin: normal turgor, no lesions, no rashes Neurological - other findings: L sided weakness, sleepy, CN 2-12 intact but eyes dilated Musculoskeletal: no muscle wasting Psychiatric - other findings: unable to evaluate Hospitalist Results - Labs Result Diagrams: 03/17/20 22:21 03/17/20 22:21 Lab results: WBC 7.8 thou/uL (4.8-10.8) 03/17/20 22:21 Hgb 14.2 g/dL (14.0-18.0) 03/17/20 22:21 Hct 44.3 % (42.0-52.0) 03/17/20 22:21 MCV 73.4 fL (78.0-98.0) L 03/17/20 22:21 Plt Count 215 thou/uL (130-400) 03/17/20 22:21 Neutrophils % 66.2 % (42.0-75.0) 03/17/20 22:21 Sodium 139 mmol/L (136-145) 03/17/20 22:21 Potassium 4.3 mmol/L (3.5-5.1) 03/17/20 22:21 Chloride 104 mmol/L (98-107) 03/17/20 22:21 Carbon Dioxide 23 mmol/L (22-29) 03/17/20 22:21 BUN 9 mg/dL (8.4-25.7) 03/17/20 22:21 Creatinine 0.79 mg/dL (0.7-1.3) 03/17/20 22:21 Glucose 153 mg/dL (70-105) H 03/17/20 22:21 Calcium 9.4 mg/dL (7.8-10.44) 03/17/20 22:21 Total Bilirubin 0.6 mg/dL (0.2-1.2) 03/17/20 22:21 AST 11 U/L (5-34) 03/17/20 22:21 ALT 7 U/L (8-55) L 03/17/20 22:21 Alkaline Phosphatase 78 U/L (40-110) 03/17/20 22:21 Troponin I Less than 0.010 ng/mL (< 0.028) 03/17/20 23:57 Serum Total Protein 7.0 g/dL (6.0-8.3) 03/17/20 22:21 Albumin 4.1 g/dL (3.5-5.0) 03/17/20 22:21 Additional comment: labs, imaging reports, ED documents reviewed Hospitalist H&P A/P - Plan Plan: Patient is a 60 year old male with PMH brain tumor, HTN, DM who presents to the hospital today for seizure. # history of brain tumor with recurrence - reportedly a glioblastoma, which has advanced despite treatment # seizure - first ever episode today w/ residual L sided weakness 5 minute seizure episode at home w/ L sided weakness afterwards, ED physician talked with Dr Vang, who believes the tumor is terminal and recommends CTA chest and palliative care consult as well as seizure workup. CTA chest did not show anything acute. Prolactin elevated consistent with seizure. CT brain performed and revealed tumor related findings, no acute hemorrhage noted. With regards to tumor, patient was first diagnosed March 2019, sees Dr Vang and a physician at [facility]. Patient had a surgery May 2019, followed by radiation until July, and has been on avastin, however they just had MRI today at [facility] and got the news today that tumor has recurred and actually significantly increased in size. - admit to floor - initiate decadron 4mg IV q6h - start IV keppra, check levels in blood to see if dose is ok - consult palliative care, oncology # T2DM w/ hyperglycemia - SSI initiated, hold PO medications # HTN - PRN medications available DVT ppx - SCD GI ppx Code status - discussed with , full code for now, they are agreeable to discussion about this in AM preferably involving Dr Vang
[2020-03-18] MEDS ORDERED: Electrolyte Replacement Protoc 1 EACH EACH FS SCH (02:30)
[2020-03-18] MEDS: Sodium Chloride 0.9% 1,000 ML IV SCH ×2 (03:39→16:41)
[2020-03-18] MEDS: Dexamethasone 4 mg/ml Vial SLOW IVP SCH ×4 (03:40→21:32)
[2020-03-18] MEDS: Acetaminophen 325 MG TAB PO PRN ×2 (04:26→09:27)
[2020-03-18] MEDS ORDERED: LEVETIRACETAM IVPB SCH (06:45)
[2020-03-18] MEDS ORDERED: NACL IVPB SCH (06:45)
[2020-03-18] MEDS: Famotidine 20 MG TAB PO SCH ×2 (09:27→21:31)
[2020-03-18] MEDS: Polyethylene Glycol 3350 17 GM Packet PO SCH (11:57)
[2020-03-18 12:47] LABS: SARS-CoV-2 MS2 Positive; SARS-CoV-2 N Gene Negative; SARS-CoV-2 S Gene Negative; SARS-CoV-2 by NAA Not Detected (NotDetected); SARS-CoV-2 orf1ab Negative
--- NOTE | 2020-03-18 14:00 | CON ---
DATE OF CONSULTATION: REASON FOR CONSULTATION: Glioblastoma. 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 This was followed by radiation therapy and Temodar. At the end of August, he had an MRI consistent with progression. He began treatment with Avastin chemotherapy, this was given every 2 weeks. His last dose was on March 11. He went to [facility] yesterday for followup scans which showed progression of disease in the brain. [facility] recommended hospice. Yesterday evening at home, he had seizure-like activity and was brought to our ER for treatment. He was started on IV Keppra and has had none since. Family spoke with Dr. Vang by telephone yesterday, who agreed that hospice is his best option. The patient was seen at bedside. He is alert. His family is present. He has no complaints at this time. PAST MEDICAL HISTORY: 1. Glioblastoma of the right parietal lobe. 2. Diabetes mellitus. 3. Hypertension. 4. Polio. PAST SURGICAL HISTORY: Craniotomy with tumor resection. ALLERGIES: NO KNOWN DRUG ALLERGIES. HOME MEDICATIONS: 1. Glimepiride. 2. Lisinopril. 3. Metformin. 4. Gleostine. 5. Keppra. 6. Protonix. FAMILY HISTORY: Noncontributory. SOCIAL HISTORY: , has 2 children. Lives with his spouse. No alcohol, tobacco, or illicit drug use. REVIEW OF SYSTEMS: Positive for weakness. PHYSICAL EXAMINATION: VITAL SIGNS: Temperature is 97.7, pulse is 97, respiratory rate 20, blood pressure is 144/84. He is 97% on room air. GENERAL: Well-developed, well-nourished male. HEENT: Normocephalic, atraumatic. Pupils are equal and reactive to light. CV: Regular rate and rhythm. LUNGS: Clear. ABDOMEN: Soft and nontender. Bowel sounds are positive. NEUROLOGICAL: He is weak and nonverbal, but does follow commands. PERTINENT LABORATORY DATA AND X-RAYS: Current WBCs are 7.8, hemoglobin 14.2, hematocrit 44.3, platelet count is 215,000, 66% neutrophils, 22% lymphs. Sodium 139, potassium 4.3, chloride 104, CO2 is 23, BUN is 9, creatinine 0.79, calcium 9.4, bilirubin 0.6, AST is 11, ALT is 7, and alkaline phosphatase is 78, serum total protein is 7, albumin 4.1, globulin 2.9. COVID-19 PCR negative. ASSESSMENT: 1. Glioblastoma with recent progression. 2. Breakthrough seizure activity. DISCUSSION: The patient was seen at bedside with family present. They would like to take the patient home on hospice to focus on comfort and quality. We will consult Case Management for their assistance with this transition. Thank you for the consult. Job ID: [id number] MTDD
[2020-03-18] MEDS ORDERED: Lisinopril 10 MG TAB PO SCH (18:00)
[2020-03-18] MEDS: HumaLOG 300 UNITS/3 ML VIAL SC PRN ×2 (18:35→21:33)
[2020-03-18] MEDS: NACL IVPB SCH (21:31)
[2020-03-18] MEDS: LEVETIRACETAM IVPB SCH (21:31)
[2020-03-19] MEDS: Dexamethasone 4 mg/ml Vial SLOW IVP SCH ×4 (03:48→20:38)
[2020-03-19] MEDS: Sodium Chloride 0.9% 1,000 ML IV SCH (03:48)
[2020-03-19 05:32] LABS: Anion Gap 15 mmol/L (10-20); BUN (Urea Nitrogen) 12 mg/dL (8.4-25.7); Calc. Creatinine Clearance 105 mL/min (70-130); Calcium 8.5 mg/dL (7.8-10.44); Carbon Dioxide 19 mmol/L (22-29); Chloride 108 mmol/L (98-107); Estimated GFR-MDRD Greater than 90; Glucose 217 mg/dL (70-105); Potassium 4.1 mmol/L (3.5-5.1); Sodium 138 mmol/L (136-145)
[2020-03-19] MEDS: HumaLOG 300 UNITS/3 ML VIAL SC PRN ×4 (06:01→20:46)
[2020-03-19 06:05] LABS: #Lymphocytes 1.1 thou/uL (1.20-3.40); #Monocytes 0.6 thou/uL (0.11-0.59); #Neutrophils 9.4 thou/uL (1.40-6.50); %Eosinophils 0.2 % (0.0-10.0); %Lymphocytes 10.1 % (21.0-51.0); %Neutrophils 84.7 % (42.0-75.0); Elliptocytes SLIGHT = 2-5 cells (100X) (0-1/hpf); Hemoglobin 12.2 g/dL (14.0-18.0); MDiff Complete? YES; Mean Corpuscular HGB CONC 32.6 g/dL (32.0-36.0); Mean Corpuscular Hemoglobin 24.1 pg (27.0-31.0); Mean Corpuscular Volume 73.8 fL (78.0-98.0); Mean Platelet Volume 12.3 fL (7.4-10.4); Platelet Count 198 thou/uL (130-400); Platelet Morphology Comment Appears Adequate; RBC Distribution Width 21.8 % (11.5-14.5); Red Blood Cell (RBC) Count 5.06 mill/uL (4.70-6.10); White Blood Cell (WBC) Count 11.2 thou/uL (4.8-10.8)
[2020-03-19] MEDS ORDERED: Magnesium 2 GM/50 ML 2 GM in Premix Bag 1 BAG IVPB SCH (06:30)
[2020-03-19] MEDS: Lisinopril 10 MG TAB PO SCH (09:06)
[2020-03-19] MEDS: NACL IVPB SCH (09:07)
[2020-03-19] MEDS: LEVETIRACETAM IVPB SCH (09:07)
[2020-03-19] MEDS: Polyethylene Glycol 3350 17 GM Packet PO SCH (09:07)
[2020-03-19] MEDS: Famotidine 20 MG TAB PO SCH ×2 (09:10→20:46)
[2020-03-19] MEDS: Fluticasone Propionate Nasal Spray 16 gm Bottle NASAL SCH (09:33)
--- NOTE | 2020-03-19 14:08 | EKG ---
Test Reason : Blood Pressure : / mmHG Vent. Rate : 093 BPM Atrial Rate : 093 BPM P-R Int : 140 ms QRS Dur : 084 ms QT Int : 364 ms P-R-T Axes : 051 009 044 degrees QTc Int : 452 ms Normal sinus rhythm Normal ECG Confirmed by GOLDIE HANSON ([id number]), market editor JAIRO JENSEN ([id number]) on 03/19/2020 2:08:06 PM Referred By: Confirmed By:GOLDIE HANSON
--- NOTE | 2020-03-19 17:08 | PDOC.HOSPP ---
- Subjective Encounter Date: 03/19/20 Encounter Time: 09:45 Subjective: pt up in bed no complains. - Objective Vital Signs & Weight: Vital Signs (12 hours) Temp Pulse Resp BP Pulse Ox 03/19/20 16:00 97.9 F 90 18 159/88 H 98 03/19/20 11:30 99 F 85 18 143/86 H 94 L 03/19/20 07:40 98.2 F 84 18 146/85 H 99 Weight Admit Weight 140 lb 8 oz Weight 139 lb 3.2 oz I&O: 03/18/20 03/19/20 03/20/20 06:59 06:59 06:59 Intake Total 240 2020 Output Total 525 Balance 240 1495 Result Diagrams: 03/19/20 04:21 03/19/20 04:21 Additional Labs: Accuchecks 03/19/20 03/19/20 03/19/20 17:02 10:44 05:34 POC Glucose 305 H 196 H 203 H 03/18/20 03/18/20 20:26 17:13 POC Glucose 275 H 302 H Hospitalist ROS - Review of Systems Cardiovascular: denies: chest pain, palpitations, orthopnea, paroxysmal noc. dyspnea, edema, light headedness, other Gastrointestinal: denies: nausea, vomiting, abdominal pain, diarrhea, constipation, melena, hematochezia, other Genitourinary: denies: dysuria, frequency, incontinence, hematuria, retention, other - Medication Medications: Active Medications Generic Name Dose Route Start Last Admin Trade Name Freq PRN Reason Stop Dose Admin Acetaminophen 650 mg 03/18/20 02:25 03/18/20 09:27 Acetaminophen 325 Mg Tab PO 650 mg Q4H PRN Administration Headache/Fever/Mild Pain (1-3) Dexamethasone 4 mg 03/18/20 03:00 03/19/20 14:59 Dexamethasone 4 Mg/Ml Vial SLOW IVP 4 mg 0300,0900,1500,2100 MARIA FERNANDA Administration Famotidine 20 mg 03/18/20 09:00 03/19/20 09:10 Famotidine 20 Mg Tab PO Not Given BID MARIA FERNANDA Fluticasone Propionate 0 gm 03/19/20 09:00 03/19/20 09:33 Fluticasone Propionate Nasal Mackey 16 Gm Bottle NASAL Not Given DAILY [facility] Insulin Human Lispro 0 units 03/18/20 17:47 03/19/20 11:16 Humalog 300 Units/3 Ml Vial SC 2 unit .MODERATE SLIDING SC PRN Administration Moderate Correctional Scale Lisinopril 10 mg 03/19/20 09:00 03/19/20 09:06 Lisinopril 10 Mg Tab PO 10 mg DAILY MARIA FERNANDA Administration Polyethylene Glycol 17 gm 03/18/20 09:00 03/19/20 09:07 Polyethylene Glycol 3350 17 Gm Packet PO Not Given DAILY MARIA FERNANDA Sodium Chloride 10 ml 03/18/20 09:00 03/19/20 09:34 Flush - Normal Saline 10 Ml Syringe IVF Not Given Q12HR MARIA FERNANDA Sodium Chloride 10 ml 03/18/20 02:45 03/18/20 03:39 Flush - Normal Saline 10 Ml Syringe IVF 10 ml PRN PRN Administration Saline Flush - Exam Neck: negative: supple, symmetric, no JVD, no thyromegaly, no lymphadenopathy, no carotid bruit, JVD Heart: negative: RRR, no murmur, no gallops, no rubs, normal peripheral pulses, irregular, diminshed peripheral pulses, murmur present, II/IV, III/IV Respiratory: negative: CTAB, no wheezes, no rales, no ronchi, normal chest expansion, no tachypnea, normal percussion, rales, rhonchi, tachypneic, wheezes Gastrointestinal: negative: soft, non-tender, non-distended, normal bowel sounds, no palpable masses, no hepatomegaly, no splenomegaly, no bruit, no guarding, no rigidity, tender to palpation, distended, diminished bowl sounds, voluntary guarding Extremities: 1+ LE edema Extremities - other findings: left side paralysis Hosp A/P (1) Seizure Code(s): R56.9 - UNSPECIFIED CONVULSIONS Status: Acute (2) Brain mass Code(s): G93.89 - OTHER SPECIFIED DISORDERS OF BRAIN Status: Acute (3) DM type 2 (diabetes mellitus, type 2) Status: Chronic Qualifiers: Diabetes mellitus ocean transportation intermediary insulin use: without ocean transportation intermediary use (4) HTN (hypertension) Code(s): I10 - ESSENTIAL (PRIMARY) HYPERTENSION Status: Chronic Qualifiers: Hypertension type: essential hypertension Qualified Code(s): I10 - Essential (primary) hypertension - Plan will increase keppra 1000mg bid. pt's family aware that pt's mri brain worsening. Family wants hospice.
[2020-03-19] MEDS ORDERED: HumaLOG 300 UNITS/3 ML VIAL SC PRN (17:11)
--- NOTE | 2020-03-19 17:46 | CON ---
DATE OF CONSULTATION: 03/19/2020 CONSULTING PHYSICIAN: Hospitalist Services. IMPRESSION: Breakthrough seizure. PLAN: 1. Increase Keppra to 2000mg per day. 2. Office followup. HISTORY OF PRESENT ILLNESS: Mr. Ramirez is a 60-year-old Somali man with a past history of glioblastoma. He presented to my clinic over a year ago with complaints of left hand weakness and numbness. An MRI was delayed, and he was subsequently seen in the emergency room. CT of the brain revealed evidence of the mass in the right periventricular region that extended into the corpus callosum. He was seen by Neurosurgery and had biopsy and some resection done. He was referred for physical therapy and made some level of improvement in his left-sided weakness. When the virus broke out, he discontinued therapy over the ensuing months, they have noticed some progression of weakness in the left arm. He is still able to walk. His speech has been slightly slurred for some time now, but has not changed. His notes that he seems to talk quieter than he used to. He came in at this time due to the breakthrough seizure. He is back to his baseline as far as how he is feeling. PAST MEDICAL HISTORY: Otherwise positive for diabetes, hypertension, and polio. PAST SURGICAL HISTORY: Craniotomy. ALLERGIES: NONE REPORTED. MEDICATIONS: List was reviewed. FAMILY HISTORY: Unremarkable. SOCIAL HISTORY: No alcohol, tobacco, or illicit drug use. REVIEW OF SYSTEMS: Ten-system review of systems is otherwise negative. PHYSICAL EXAMINATION: GENERAL: He is a thin, middle-aged man, in no distress. VITAL SIGNS: Blood pressure 144/84, pulse 97, respirations 20, and temperature 97.7. HEENT: Pupils equal and reactive. Conjunctivae clear. Oropharynx clear. NECK: Supple. No lymphadenopathy. EXTREMITIES: No cyanosis or edema. There is some deformity of his lower extremities secondary to the polio. ABDOMEN: Soft and nontender. SKIN: Clear. NEUROLOGIC: He is alert and cooperative. His speech is fluent with some minimal dysarthria. Cranial nerve exam showed some flattening of the left nasolabial fold. Motor exam showed dense paralysis of left upper extremity. He had antigravity strength in the left leg. Sensation was subjectively equal. No abnormal movements were seen. Gait was not tested. LABORATORY STUDIES: Unremarkable CBC. Serum chemistries have shown sugars between 150 and 300. Keppra level is 10.4. COVID test was negative. Imaging was reviewed and shows periventricular mass is more prominent on the right with some alteration of the corpus callosum as far as the thickness. No hemorrhage is present. SUMMARY: Middle-aged male with a glioblastoma and a breakthrough seizure. I would increase his Keppra to 1000 mg twice a day. I would be happy to follow up with him in the clinic. Job ID: [id number] MTDD
[2020-03-19] MEDS: Glimepiride 4 MG TAB PO SCH (20:45)
[2020-03-19] MEDS: levETIRAcetam 500 MG TAB PO SCH (20:45)
[2020-03-19] MEDS ORDERED: Insulin Glargine 5 UNITS in Pre-Filled Syringe 1 EACH SC SCH (21:00)
[2020-03-19] MEDS ORDERED: levETIRAcetam In NaCl (Iso-Os) 1,000 MG in Premix Bag 1 BAG IVPB SCH (21:00)
[2020-03-19] MEDS ORDERED: levETIRAcetam 1,000 MG in Sodium Chloride 0.9% 100 ML IVPB SCH (21:00)
[2020-03-20] MEDS ORDERED: Labetalol 100 MG TAB PO SCH (00:10)
[2020-03-20] MEDS: Dexamethasone 4 mg/ml Vial SLOW IVP SCH ×3 (02:06→16:30)
[2020-03-20] MEDS: Lisinopril 10 MG TAB PO SCH (09:22)
[2020-03-20] MEDS: Glimepiride 4 MG TAB PO SCH (09:24)
[2020-03-20] MEDS: Polyethylene Glycol 3350 17 GM Packet PO SCH (09:24)
[2020-03-20] MEDS: levETIRAcetam 500 MG TAB PO SCH (09:24)
[2020-03-20] MEDS: Famotidine 20 MG TAB PO SCH (09:24)
[2020-03-20] MEDS: Fluticasone Propionate Nasal Spray 16 gm Bottle NASAL SCH (09:24)
[2020-03-20] MEDS ORDERED: Dexamethasone 4 MG TAB PO SCH (09:30)
[2020-03-20 12:06] VITALS: BP 121/75; TEMP 98
--- NOTE | 2020-03-20 23:15 | DIS ---
DATE OF ADMISSION: 03/17/2020 DATE OF DISCHARGE: 03/20/2020 DISCHARGE DIAGNOSES: 1. Seizure. 2. Glioblastoma brain tumor. HOSPITAL COURSE: The patient is a 60-year-old male with a history of glioblastoma, status post resection, who initially came into the hospital for an evaluation given that he had a seizure a couple days prior to the admission. He was asked by his oncologist to come in for an evaluation. His Keppra dose was increased. He was started back on steroids. Patient's family at this time opted for hospice. Case Management was consulted for home with hospice. Patient's family stated that they have all the equipment at home and will be able to take care of him at home. Patient at this time was discharged. DIAGNOSTIC TESTS: The patient had a CTA that was done, which did not show any acute abnormalities. He had an MRI done as an outpatient, that is why we did not repeat an MRI here. The MRI had showed worsening disease. The CT brain here indicated that he did have some underlying recurrent tumor. HOME MEDICATIONS: 1. Keppra 1000 mg twice a day. 2. Dexamethasone 4 mg t.i.d. 3. Protonix 40 mg daily. 4. Glimepiride 4 mg b.i.d. 5. Lisinopril 10 mg b.i.d. 6. Metformin 500 mg b.i.d. PHYSICAL EXAMINATION: VITAL SIGNS: On discharge, 98.0 temperature, 81, 17, 97% room air, 121/75. GENERAL: He is awake, alert, and oriented x3. Does not appear in distress. CV: S1, S2 present. No murmurs, rubs, or gallops. EXTREMITIES: He does have significant paralysis on the left upper and lower extremity. Again, he will be discharged home, follow up with primary and hospice. Job ID: [id number]
== END 2020-03-20 16:00 | disposition home or self-care (01) ==
LOC: ERS 21:55 → 2NO 23:52
PROVIDERS: ADMIT Internal Medicine; ATTEND Internal Medicine
DX: R56.9 Unspecified convulsions (principal); C71.3 Malignant neoplasm of parietal lobe; I10 Essential (primary) hypertension; E11.65 Type 2 diabetes mellitus with hyperglycemia; G81.94 Hemiplegia, unspecified affecting left nondominant side; Z79.84 Long term (current) use of oral hypoglycemic drugs; Z79.899 Other long term (current) drug therapy; Z20.828 Contact with and (suspected) exposure to other viral communicable diseases
CPT/HCPCS: 36415; 36416; 70450; 71275; 80048; 80053; 80177; 83735; 84146; 84484; 85025; 87635; 93005; 96361; 96374; 96375; 96376; G0378; J1100; J1953; J2270; J2405; J3475; J8540; Q9967; U0003